=== PATIENT | male | born 1960 | race African-American/Black ===

== ENCOUNTER 2016-08-13 02:45 | Emergency (ER) | payer OTHER ==
[~2016-08-13] VITALS: Ht 175.3 cm; Wt 92.5 kg
[~2016-08-13 02:45] MED LIST: HTN MEDS
[2016-08-13 02:53] VITALS: Ht 175.3 cm; Wt 92.5 kg
--- NOTE | 2016-08-13 05:58 | ERD ---
ER Documentation Chief Complaint Date/Time DATE: 08/13/16 TIME: 05:53 Chief Complaint Pt reports bumping L elbow 3 days ago on dresser. HPI 55-year-old male complaining of left elbow swelling 3 days. Patient stated that he bumped the left elbow on a dresser 3 days ago. He feels like there is some fluid in his left elbow. He does not have any pain at this time. Denies fever or chills. ROS All systems reviewed and are negative except as per history of present illness. Medications Home Meds Reported Medications [Htn Meds] No Conflict Check 03/22/10 Allergies Allergies: Coded Allergies: No Known Drug Allergies (Verified Allergy, Mild, 03/22/10) PMhx/Soc History of Surgery: No Anesthesia Reaction: No Hx Neurological Disorder: No Hx Respiratory Disorders: No Hx Cardiac Disorders: Yes (HTN) Hx Psychiatric Problems: No Hx Miscellaneous Medical Probl: No Hx Alcohol Use: Yes (quit 2011) Hx Substance Use: No Hx Tobacco Use: Yes Smoking Status: Current every day smoker Physical Exam Vitals Vital Signs Date Time Temp Pulse Resp B/P Pulse Ox O2 Delivery O2 Flow Rate FiO2 08/13/16 02:53 98.3 85 16 169/107 95 Physical Exam General impression: Well-developed, well-nourished. Alert, oriented, in no acute distress Head: Normocephalic, atraumatic. Eyes: PERRL, EOM normal. Sclerae are normal. Conjunctiva not injected. Respiration: Normal respiratory effort. Lungs clear to auscultate bilaterally. No wheezes, rales or rhonchi. Cardiovascular: Regular rate and rhythm. No murmurs or extra heart sounds. xtremities: Left olecranon bursa noted, no erythema, swelling, or exudate. Nontender. ROM normal. Neurovascularly intact. Neuro: Mental status normal, speech normal. RAILROAD BRAKEMAN grossly intact. Skin: Normal turgor. No rash or lesions. Psych: Normal mood and affect. Procedures/MDM Well-appearing 55-year-old male presents to ED with left olecranon bursitis. Bursitis occurred after patient impacted his left elbow on the dresser. I doubt fracture, dislocation, septic joint. Explained to the patient that training the bursitis is not necessary, it will go away in 2-3 weeks. I advised patient to follow-up with PCP in 1 week. Patient eloped before receiving discharge instructions. Departure Diagnosis: Primary Impression: Olecranon bursitis of left elbow Condition: Good Patient Instructions: Bursitis, Elbow (Olecranon) Referrals: [facility] YOU HAVE RECEIVED A MEDICAL SCREENING EXAM AND THE RESULTS INDICATE THAT YOU DO NOT HAVE A CONDITION THAT REQUIRES URGENT TREATMENT IN THE EMERGENCY DEPARTMENT. FURTHER EVALUATION AND TREATMENT OF YOUR CONDITION CAN WAIT UNTIL YOU ARE SEEN IN YOUR DOCTORS OFFICE WITHIN THE NEXT 1-2 DAYS. IT IS YOUR RESPONSIBILITY TO MAKE AN APPOINTMENT FOR FOLOW-UP CARE. IF YOU HAVE A PRIMARY DOCTOR --you should call your primary doctor and schedule an appointment IF YOU DO NOT HAVE A PRIMARY DOCTOR YOU CAN CALL OUR PHYSICIAN REFERRAL HOTLINE AT IF YOU CAN NOT AFFORD TO SEE A PHYSICIAN YOU CAN CHOSE FROM THE FOLLOWING [facility] [address] [facility]. [facility] [address] [facility] [address] [facility] [address] [facility]. [facility] [address] [facility]. [facility]. [address] Additional Instructions: Call your primary care doctor TOMORROW for an appointment during the next 1 WEEK.Tell the bridges supervisor that you were referred from this facility.See the doctor sooner or return here if your condition worsens before your appointment time. BARON RODRIGUEZ NP Aug 13, 2016 05:58
== END 2016-08-13 06:06 | disposition left against medical advice (07) ==
LOC: FTE 02:45
DX: M70.22 Olecranon bursitis, left elbow (principal); I10 Essential (primary) hypertension; F17.210 Nicotine dependence, cigarettes, uncomplicated; Y93.9 Activity, unspecified
CPT/HCPCS: 99282